=== PATIENT | male | born 1970 | race Caucasian/White ===

== ENCOUNTER 2017-03-26 01:31 | Emergency (ER) | payer MEDICAID, OTHER ==
[~2017-03-26] VITALS: Ht 170.2 cm; Wt 86.4 kg
[2017-03-26] MEDS ORDERED: HYDROmorphone 2 MG/ML SYRINGE IM ONE (02:00)
[2017-03-26] MEDS ORDERED: KETOROLAC TROMETHAMINE 60 MG/2 ML VIAL IM ONE (02:00)
[2017-03-26] MEDS ORDERED: ONDANSETRON HCL 4 MG/2 ML VIAL IM ONE (02:00)
[2017-03-26 04:00] VITALS: BP 127/71
== END 2017-03-26 04:06 | disposition home or self-care (01) ==
LOC: EMS 01:31
DX: S63.054A Dislocation of other carpometacarpal joint of right hand, initial encounter (principal); W22.8XXA Striking against or struck by other objects, initial encounter; Y93.89 Activity, other specified; Y92.89 Other specified places as the place of occurrence of the external cause; Y99.8 Other external cause status
CPT/HCPCS: 26700; 73130; 96372; 99284; J1170; J1885; J2405; 26770; 29280

== ENCOUNTER 2018-02-21 23:10 | Emergency (ER) | payer SELFPAY ==
[~2018-02-21] VITALS: Ht 172.7 cm; Wt 89.1 kg
[2018-02-22] MEDS ORDERED: LIDOCAINE HCL 2%/EPI 1:200,000/PF 20 ML VIAL INJ ONE ×2 (00:15)
[2018-02-22 01:05] VITALS: BP 147/88
== END 2018-02-22 01:07 | disposition home or self-care (01) ==
LOC: EDUNIT# 23:10 → EMS 23:11
DX: S81.812A Laceration without foreign body, left lower leg, initial encounter (principal); W45.8XXA Other foreign body or object entering through skin, initial encounter; Y93.89 Activity, other specified; Y92.89 Other specified places as the place of occurrence of the external cause; Y99.8 Other external cause status
CPT/HCPCS: 12001; 99283; X6474

== ENCOUNTER 2018-03-05 10:52 | Emergency (ER) | payer SELFPAY ==
[~2018-03-05] VITALS: Ht 172.7 cm; Wt 86.4 kg
[2018-03-05 10:59] VITALS: BP 126/92
[2018-03-05] MEDS ORDERED: BARIUM SULFATE 0.1% SUSPENSION 450 ML BOTTLE ONE (11:08)
== END 2018-03-05 11:59 | disposition home or self-care (01) ==
LOC: EMS 10:53
DX: S81.812D Laceration without foreign body, left lower leg, subsequent encounter (principal); W45.8XXD Other foreign body or object entering through skin, subsequent encounter
CPT/HCPCS: 99281

== ENCOUNTER 2019-07-12 09:37 | Emergency (ER) | payer OTHER ==
[~2019-07-12] VITALS: Ht 177.8 cm; Wt 86.4 kg
[2019-07-12] MEDS ORDERED: ACETAMINOPHEN 500 MG TABLET PO ONE (10:00)
[2019-07-12 10:43] VITALS: BP 127/88
== END 2019-07-12 10:48 | disposition home or self-care (01) ==
LOC: EMS 09:39
DX: S09.90XA Unspecified injury of head, initial encounter (principal); W22.8XXA Striking against or struck by other objects, initial encounter; Y93.89 Activity, other specified; Y92.89 Other specified places as the place of occurrence of the external cause; Y99.0 Civilian activity done for income or pay
CPT/HCPCS: 70450

== ENCOUNTER 2021-08-16 17:23 | Emergency (ER) | payer MEDICAID, OTHER ==
[~2021-08-16] VITALS: Ht 172.7 cm; Wt 90.0 kg
[2021-08-16 20:04] VITALS: BP 116/71
== END 2021-08-16 20:21 | disposition home or self-care (01) ==
LOC: EMS 17:33
DX: H60.91 Unspecified otitis externa, right ear (principal)
CPT/HCPCS: 99283; Z7502

== ENCOUNTER 2021-11-15 15:36 | Emergency (ER) | payer MEDICAID ==
[~2021-11-15] VITALS: Ht 172.7 cm; Wt 84.1 kg
[2021-11-15 15:54] VITALS: BP 107/70
[2021-11-15] MEDS ORDERED: NIZO2SH TP (19:53)
[2021-11-15] MEDS ORDERED: SELE207S8 TP (19:53)
[2021-11-15] MEDS ORDERED: KETO15CR2 TP (20:15)
== END 2021-11-15 20:31 | disposition home or self-care (01) ==
LOC: EMS 15:52
DX: B35.4 Tinea corporis (principal)
CPT/HCPCS: 99282; Z7502

== ENCOUNTER 2024-11-21 19:44 | Emergency (ER) | payer MEDICAID, OTHER ==
[~2024-11-21] VITALS: Ht 170.2 cm; Wt 85.0 kg
[~2024-11-21 19:44] MED LIST: KETO15CR2 TP; SELE207S8 TP
[2024-11-21 19:58] VITALS: TEMP 98.2
[2024-11-21] MEDS ORDERED: IBUP-1554 PO (22:21)
[2024-11-21] MEDS ORDERED: BACI28.410 TP (22:21)
[2024-11-21] MEDS ORDERED: CEPH-558 PO (22:21)
[2024-11-21] MEDS ORDERED: ACET-2080 PO (22:21)
[2024-11-21] MEDS: CEPHALEXIN MONOHYDRATE 500 MG CAPSULE PO ONE (22:38)
[2024-11-21] MEDS: IBUPROFEN 600 MG TABLET PO ONE (22:39)
[2024-11-21 23:29] VITALS: BP 131/67; PULSE 70; RESP 16; O2SAT 96
== END 2024-11-21 23:35 | disposition home or self-care (01) ==
LOC: EMS 19:44
DX: S90.212A Contusion of left great toe with damage to nail, initial encounter (principal); E11.9 Type 2 diabetes mellitus without complications; Z90.49 Acquired absence of other specified parts of digestive tract; W20.8XXA Other cause of strike by thrown, projected or falling object, initial encounter; Y93.43 Activity, gymnastics; Y92.89 Other specified places as the place of occurrence of the external cause; Y99.8 Other external cause status
CPT/HCPCS: 99283